=== PATIENT | male | born 1995 ===

== ENCOUNTER 2018-10-21 13:48 | Emergency (ER) | payer OTHER ==
[2018-10-21 14:08] VITALS: BP 139/94
--- NOTE | 2018-10-21 14:21 | UC ---
General HPI - HPI Summary HPI Summary: Patient here for palpitations. No chest pain. States he has been stressed over the past few days due to exams. Is graduating this year and needs to pass. Yesterday he noticed the discomfort - waxes and wanes. Nothing makes it worse. Deep breaths and rest seem to help. No SOB. No diaphoresis. No nausea. Thought he was getting sick last night with a cold and took tylenol cold and flu. Drank 3 cups of coffee yesterday and was taking a friends stimulant medication to help him study last week. Also binge drank two days ago - 10 drinks. Went to [employer] - could not get an apt but they took his vitals and they noticed he has a blood pressure of 146/86 - History of Current Complaint Chief Complaint: UCGeneralIllness Stated Complaint: HIGH BP Time Seen by Provider: 10/21/18 14:01 Pain Intensity: 4 - Allergy/Home Medications Allergies/Adverse Reactions: Allergies Allergy/AdvReac Type Severity Reaction Status Date / Time No Known Allergies Allergy Verified 10/21/18 13:57 Home Medications: Home Medications NK [No Home Medications Reported] 10/21/18 [History Confirmed 10/21/18] PMH/Surg Hx/FS Hx/Imm Hx Previously Healthy: Yes - Surgical History Surgical History: None - Social History Alcohol Use: Occasionally Alcohol Amount: had 10 drinks/ beers on Substance Use Type: None Smoking Status (MU): Unknown if Ever Smoked Amount Used/How Often: states socially Review of Systems All Other Systems Reviewed And Are Negative: Yes Cardiovascular: Positive: Palpitations Physical Exam Triage Information Reviewed: Yes Appearance: Well-Appearing Vital Signs: Initial Vital Signs Temp 98.8 F 10/21/18 13:58 Pulse 79 10/21/18 13:58 Resp 20 10/21/18 13:58 BP 139/94 10/21/18 13:58 Pulse Ox 97 10/21/18 13:58 Vital Signs Reviewed: Yes Eyes: Positive: Conjunctiva Clear ENT: Positive: Normal ENT inspection Neck: Positive: Supple Respiratory: Positive: Lungs clear, Normal breath sounds Cardiovascular: Positive: RRR, No Murmur Diagnostics - EKG Cardiac Rate: NL Course/Dx - Course Course Of Treatment: This is a 23 yr old with palpitations Assessment EKG: HR 86 - while patient states he is feeling palpitations Most likely anxiety related to stress and exams Plan Recommend limiting caffeine intake and avoiding stimulants Recommend monitoring heart rate when having palpitations, if over 100 beats per minute, follow up with [facility] sooner than Tuesday 10/24 If Chest pain, light headedness, persistent palpitations and/or heart rate sustained greater than 100, return to urgent care or the ER. Follow up blood pressure at [facility] - Diagnoses Provider Diagnosis: Anxiety Discharge - Sign-Out/Discharge Documenting (check all that apply): Patient Departure All imaging exams completed and their final reports reviewed: No Studies - Discharge Plan Condition: Good Disposition: HOME Patient Education Materials: Anxiety (ED) Referrals: [facility] - [facility]auhtemoc [, APPLICATION, OTHER] - Additional Instructions: Recommend limiting caffeine intake and avoiding stimulants Recommend monitoring heart rate when having palpitations, if over 100 beats per minute, follow up with [facility] sooner than Tuesday 10/24 If Chest pain, light headedness, persistent palpitations and/or heart rate sustained greater than 100, return to urgent care or the ER. Follow up blood pressure at [facility] - Billing Disposition and Condition Condition: GOOD Disposition: Home
== END 2018-10-21 14:40 | disposition home or self-care (01) ==
LOC: UCEAST 13:48
DX: F41.9 Anxiety disorder, unspecified (principal); R00.2 Palpitations
CPT/HCPCS: 93005; 99201; G0463